=== PATIENT | female | born 1985 | race Caucasian/White ===

== ENCOUNTER 2025-04-29 07:44 | Inpatient (IN) | payer MEDICAID ==
[~2025-04-29] VITALS: Ht 167.6 cm; Wt 109.8 kg
[2025-04-29] MEDS ORDERED: ALBU0.633 IH (08:12)
[2025-04-29] MEDS ORDERED: AMLO-212 PO (08:12)
[2025-04-29] MEDS: IV NS 0.9% 1,000 ML BAG IV ONE (08:15)
[2025-04-29] MEDS: CEFEPIME 1 GM in IV D5W 50 ML IV ONE (08:18)
[2025-04-29 08:20] LABS: PLATELET COUNT (AUTO) 359 K/uL (150-450); RED BLOOD CELL COUNT(AUTO) 4.81 MIL/uL (4.0-5.2); RED CELL DISTRIBUTION WIDTH 18.3 % (11.5-15.0); WHITE BLOOD COUNT (AUTO) 8.0 K/uL (4.3-11.0)
[2025-04-29 08:26] LABS: CALCIUM, SERUM 8.5 mg/dL (8.5-10.1); CREATININE 0.7 mg/dL (0.6-1.3); SODIUM SERUM 142.0 mmol/L (136-145); UREA NITROGEN, BLOOD 11.0 mg/dL (7-18)
[2025-04-29 08:30] VITALS: BP 106/77; TEMP 97.9; O2SAT 100
[2025-04-29 08:31] LABS: INR 1.04 (0.91-1.10)
[2025-04-29 08:32] LABS: ASPARTATE AMINOTRANSFERASE 15.0 U/L (15-37); TOTAL PROTEIN, SERUM 7.9 g/dL (6.4-8.2)
[2025-04-29 08:37] LABS: LACTIC ACID 1.1 mmol/L (0.4-2.0)
[2025-04-29] MEDS: VANCOMYCIN 1 GM in IV D5W 250 ML IV ONE (08:55)
[2025-04-29 09:15] VITALS: O2SAT 99
[2025-04-29] MEDS ORDERED: hydrALAZINE HCL IV 20 MG VIAL IV PRN (10:00)
[2025-04-29] MEDS ORDERED: MORPHINE SULFATE INJ 2 MG/ML DISP.SYRIN IV PRN (10:00)
[2025-04-29] MEDS ORDERED: ACETAMINOPHEN 325 MG TABLET PO PRN (10:00)
[2025-04-29] MEDS ORDERED: ONDANSETRON HCL/PF 4 MG/2 ML VIAL IVP PRN (10:00)
[2025-04-29] MEDS ORDERED: ALBUTEROL FS 2.5 MG/0.5 ML VIAL.NEB NEB PRN ×2 (10:00)
[2025-04-29 11:00] VITALS: BP 109/65; TEMP 97.5; O2SAT 100
[2025-04-29] MEDS ORDERED: CLINDAMYCIN PHOSPHATE IV 600 MG/4 ML VIAL IV SCH (13:00)
[2025-04-29] MEDS: CLINDAMYCIN 900 MG in IV D5W 50 ML IV SCH (13:50)
[2025-04-29 16:00] VITALS: BP 125/79; TEMP 97.9; O2SAT 98
[2025-04-29 20:00] VITALS: BP 129/90; TEMP 98.8; O2SAT 100
[2025-04-29] MEDS: HEPARIN SODIUM, PORCINE 5000 UNITS/1 ML VIAL SQ SCH (21:11)
== END 2025-04-29 22:55 | disposition left against medical advice (07) | DRG 383 ==
LOC: ER 07:54 → MED 09:39
PROVIDERS: ADMIT Internal Medicine; ATTEND Internal Medicine
DX: L03.116 Cellulitis of left lower limb (principal); Z59.00 Homelessness unspecified; E66.01 Morbid (severe) obesity due to excess calories; I10 Essential (primary) hypertension; J45.909 Unspecified asthma, uncomplicated; F15.10 Other stimulant abuse, uncomplicated; L97.529 Non-pressure chronic ulcer of other part of left foot with unspecified severity; W57.XXXA Bitten or stung by nonvenomous insect and other nonvenomous arthropods, initial encounter; I89.0 Lymphedema, not elsewhere classified; Z68.39 Body mass index [BMI] 39.0-39.9, adult; Y93.9 Activity, unspecified; Y92.89 Other specified places as the place of occurrence of the external cause; Z53.29 Procedure and treatment not carried out because of patient's decision for other reasons
CPT/HCPCS: 71045-TC; 73630-TC; 80048-TC; 80076-TC; 83605-TC; 84702-TC; 85025-TC; 85730-TC; 87040-TC; 87081-TC; A4223; A6253; G0378; J0692; J1644; J3373; J3490; J7030; J7060